=== PATIENT | female | born 1980 | race Asian ===

== ENCOUNTER 2016-12-23 11:17 | Outpatient (CLI) | payer OTHER ==
[~2016-12-23 11:17] MED LIST: AMBIEN5 MG PO; CIPRO500 MG PO; DIAZ5TAB20 PO; MACROBID100 MG PO; PERCOCET1 TA3 PO; VITAMIN C1000 MG PO; ZINC220 MG OR
== END 2016-12-23 19:04 | disposition home or self-care (01) ==
LOC: LAB 11:17
DX: R60.0 Localized edema (principal)
CPT/HCPCS: 82570; 84156

== ENCOUNTER 2017-09-05 16:24 | Outpatient (CLI) | payer OTHER | END 2017-09-05 20:09 | disposition home or self-care (01) | LOC: LAB 16:24 | DX: N39.0 Urinary tract infection, site not specified (principal) | CPT/HCPCS: 81000; 87077; 87086; 87088; 87186 ==

== ENCOUNTER 2018-04-05 17:14 | Outpatient (CLI) | payer OTHER ==
[2018-04-05] MEDS ORDERED: [UNRECOGNIZED DRUG - OTHER] PO ×2 (23:14)
[2018-04-05] MEDS ORDERED: IBUPROFEN 200200 MG PO ×2 (23:16)
[2018-04-05] MEDS ORDERED: CITALOPRAM40 MG PO ×2 (23:17)
[2018-04-05] MEDS ORDERED: PROM25TA52 PO ×2 (23:19)
[2018-04-05] MEDS ORDERED: OXYB5TAB56 PO ×2 (23:20)
[2018-04-05] MEDS ORDERED: RANI150T78 PO ×2 (23:21)
[2018-04-05] MEDS ORDERED: CETI10TA PO ×2 (23:22)
[2018-04-05] MEDS ORDERED: TEMA15CA19 PO ×2 (23:23)
[2018-04-05] MEDS ORDERED: LORATADINE10 M1 PO ×2 (23:25)
[2018-04-05] MEDS ORDERED: LORA1TAB17 PO ×2 (23:25)
[2018-04-05] MEDS ORDERED: PERCOCET1 TA3 PO ×2 (23:28)
[2018-04-05] MEDS ORDERED: ROBAXIN500 MG PO ×2 (23:29)
[2018-04-05] MEDS ORDERED: ABACAVIR SULFAT1 TAB PO ×2 (23:29)
== END 2018-04-05 17:26 | disposition short-term general hospital (02) ==
LOC: AMB 17:14
DX: M62.838 Other muscle spasm (principal); G82.50 Quadriplegia, unspecified
CPT/HCPCS: A0425; A0427

== ENCOUNTER 2018-04-05 17:29 | Inpatient (IN) | payer OTHER ==
[~2018-04-05] VITALS: Ht 170.2 cm; Wt 86.4 kg
[2018-04-05 17:35] VITALS: BP 213/131; TEMP 103.5
[2018-04-05 19:02] LABS: PLATELET COUNT 467 K/uL (152-353)
[2018-04-05 19:08] LABS: POTASSIUM 4.5 mmol/L (3.6-5.2)
[2018-04-05 20:11] VITALS: BP 182/119; TEMP 102
[2018-04-05 21:10] VITALS: BP 176/88; TEMP 101.2
[2018-04-05 22:10] VITALS: BP 180/82; TEMP 101.2
[2018-04-05] MEDS ORDERED: [UNRECOGNIZED DRUG - OTHER] PO ×2 (23:14)
[2018-04-05] MEDS ORDERED: IBUPROFEN 200200 MG PO ×2 (23:16)
[2018-04-05] MEDS ORDERED: CITALOPRAM40 MG PO ×2 (23:17)
[2018-04-05] MEDS ORDERED: PROM25TA52 PO ×2 (23:19)
[2018-04-05] MEDS ORDERED: OXYB5TAB56 PO ×2 (23:20)
[2018-04-05] MEDS ORDERED: RANI150T78 PO ×2 (23:21)
[2018-04-05] MEDS ORDERED: CETI10TA PO ×2 (23:22)
[2018-04-05] MEDS ORDERED: TEMA15CA19 PO ×2 (23:23)
[2018-04-05] MEDS ORDERED: LORATADINE10 M1 PO ×2 (23:25)
[2018-04-05] MEDS ORDERED: LORA1TAB17 PO ×2 (23:25)
[2018-04-05] MEDS ORDERED: PERCOCET1 TA3 PO ×2 (23:28)
[2018-04-05] MEDS ORDERED: ROBAXIN500 MG PO ×2 (23:29)
[2018-04-05] MEDS ORDERED: ABACAVIR SULFAT1 TAB PO ×2 (23:29)
[2018-04-05 23:40] VITALS: BP 180/105; TEMP 100.6
[2018-04-06] VITALS (8 sets, daily range): BP systolic 78–146; BP diastolic 49–95; TEMP 98.2–101.2; Ht 170.2 cm; Wt 86.4 kg
[2018-04-06 06:37] LABS: POTASSIUM 4.2 mmol/L (3.6-5.2)
[2018-04-06 07:01] LABS: PLATELET COUNT 418 K/uL (152-353)
[2018-04-07 03:56] VITALS: BP 100/62; TEMP 98.9
[2018-04-07 06:18] LABS: PLATELET COUNT 354 K/uL (152-353)
[2018-04-07 06:47] LABS: POTASSIUM 3.6 mmol/L (3.6-5.2)
[2018-04-07 08:00] VITALS: BP 173/105; TEMP 98.8
[2018-04-07 12:00] VITALS: BP 121/96; TEMP 98
[2018-04-07 16:00] VITALS: BP 160/108; TEMP 99
[2018-04-07 20:00] VITALS: BP 108/70; TEMP 98.6
[2018-04-08] VITALS (7 sets, daily range): BP systolic 92–142; BP diastolic 46–94; TEMP 97.7–98.9
[2018-04-08 06:36] LABS: PLATELET COUNT 399 K/uL (152-353)
[2018-04-08 06:56] LABS: POTASSIUM 3.9 mmol/L (3.6-5.2)
[2018-04-09] VITALS (7 sets, daily range): BP systolic 93–131; BP diastolic 52–84; TEMP 98.2–99.8
[2018-04-09 07:19] LABS: PLATELET COUNT 323 K/uL (152-353)
[2018-04-09 07:33] LABS: POTASSIUM 3.6 mmol/L (3.6-5.2)
[2018-04-10 04:00] VITALS: BP 98/60; TEMP 98.4
[2018-04-10 05:26] LABS: PLATELET COUNT 333 K/uL (152-353)
[2018-04-10 05:41] LABS: POTASSIUM 3.6 mmol/L (3.6-5.2)
[2018-04-10 08:00] VITALS: BP 100/63; TEMP 97.7
== END 2018-04-10 14:10 | disposition home or self-care (01) | DRG 871 ==
LOC: ED 17:29 → MED/SURG 22:18
PROVIDERS: Family Medicine; ADMIT Internal Medicine
DX: A41.51 Sepsis due to Escherichia coli [E. coli] (principal); L89.154 Pressure ulcer of sacral region, stage 4; G82.50 Quadriplegia, unspecified; N39.0 Urinary tract infection, site not specified; T83.511A Infection and inflammatory reaction due to indwelling urethral catheter, initial encounter; Y84.6 Urinary catheterization as the cause of abnormal reaction of the patient, or of later complication, without mention of misadventure at the time of the procedure; Y92.89 Other specified places as the place of occurrence of the external cause; F41.8 Other specified anxiety disorders
CPT/HCPCS: 80053; 80202; 81000; 83605; 85027; 87077; 87086; 87088; 87186; 96372; 99283; C1768; J0696; J1956; J2060; J2550; J3370

== ENCOUNTER 2018-05-10 14:28 | Outpatient (CLI) | payer OTHER ==
[~2018-05-10 14:28] MED LIST changes: +ABACAVIR SULFAT1 TAB PO; +CETI10TA PO; +CITALOPRAM40 MG PO; +IBUPROFEN 200200 MG PO; +LORA1TAB17 PO; +LORATADINE10 M1 PO; +OXYB5TAB56 PO; +PROM25TA52 PO; +RANI150T78 PO; +ROBAXIN500 MG PO; +TEMA15CA19 PO; +[UNRECOGNIZED DRUG - OTHER] PO
== END 2018-05-10 14:39 | disposition short-term general hospital (02) ==
LOC: AMB 14:28
DX: T83.098A Other mechanical complication of other urinary catheter, initial encounter (principal)
CPT/HCPCS: A0425; A0429

== ENCOUNTER 2018-05-10 14:40 | Emergency (ER) | payer OTHER ==
[~2018-05-10] VITALS: Ht 170.2 cm; Wt 86.2 kg
[2018-05-10 14:50] VITALS: TEMP 98.7
[2018-05-10 17:52] VITALS: BP 141/83
== END 2018-05-10 18:15 | disposition home or self-care (01) ==
LOC: ED 14:40
PROC: 0T9B70Z Drainage of Bladder with Drainage Device, Via Natural or Artificial Opening (ICD-10-PCS; principal; 2018-05-10)
DX: R33.8 Other retention of urine (principal); Y84.6 Urinary catheterization as the cause of abnormal reaction of the patient, or of later complication, without mention of misadventure at the time of the procedure
CPT/HCPCS: 51702; 96372; 99283; J1885

== ENCOUNTER 2018-06-28 10:32 | Outpatient (CLI) | payer OTHER | END 2018-06-28 10:43 | disposition short-term general hospital (02) | LOC: AMB 10:32 | DX: R10.9 Unspecified abdominal pain (principal); M54.5 Low back pain | CPT/HCPCS: A0425; A0429 ==

== ENCOUNTER 2018-06-28 10:46 | Inpatient (IN) | payer OTHER ==
[~2018-06-28] VITALS: Ht 170.2 cm; Wt 90.0 kg
[2018-06-28 10:54] VITALS: BP 185/87; TEMP 97.3
[2018-06-28 11:41] LABS: PLATELET COUNT 490 K/uL (152-353)
[2018-06-28 12:00] LABS: POTASSIUM 4.2 mmol/L (3.6-5.2)
[2018-06-28 16:51] VITALS: BP 155/100; TEMP 99.5; Ht 170.2 cm; Wt 90.0 kg
[2018-06-28 20:00] VITALS: BP 166/107; TEMP 98.3
[2018-06-29 01:54] VITALS: BP 176/111; TEMP 99.8
[2018-06-29 04:00] VITALS: BP 106/70; TEMP 97.2
[2018-06-29 13:11] LABS: PLATELET COUNT 449 K/uL (152-353)
[2018-06-29 13:14] LABS: POTASSIUM 3.5 mmol/L (3.6-5.2)
[2018-06-29 20:00] VITALS: BP 161/108; TEMP 99.1
[2018-06-30] VITALS: BP 128/86; TEMP 98.9
[2018-06-30 05:34] LABS: PLATELET COUNT 465 K/uL (152-353)
[2018-06-30 06:08] LABS: POTASSIUM 3.5 mmol/L (3.6-5.2)
[2018-06-30 08:03] VITALS: BP 125/86; TEMP 98.7
[2018-06-30 12:08] VITALS: BP 135/78; TEMP 98.7
[2018-06-30 16:00] VITALS: BP 149/98; TEMP 98.3
[2018-06-30 20:00] VITALS: BP 135/92; TEMP 99.4
[2018-07-01] VITALS: BP 111/73; TEMP 98.5
[2018-07-01 04:00] VITALS: BP 120/85; TEMP 98.2
[2018-07-01 07:55] LABS: PLATELET COUNT 348 K/uL (152-353)
[2018-07-01 08:04] VITALS: BP 105/67; TEMP 97.5
[2018-07-01 08:30] LABS: POTASSIUM 3.3 mmol/L (3.6-5.2)
[2018-07-01 12:13] VITALS: BP 123/77; TEMP 98.5
[2018-07-01 16:03] VITALS: BP 113/73; TEMP 98.7
[2018-07-01 20:00] VITALS: BP 154/87; TEMP 99.6
[2018-07-02] VITALS: BP 161/83; TEMP 98.9
[2018-07-02 04:00] VITALS: BP 148/80; TEMP 99.2
[2018-07-02 05:30] LABS: PLATELET COUNT 356 K/uL (152-353)
[2018-07-02 08:00] VITALS: BP 138/90; TEMP 98.9
[2018-07-02] MEDS ORDERED: CEFD300C2 PO (09:29)
[2018-07-02] MEDS ORDERED: BISA10SU8 RE (09:29)
[2018-07-02 12:00] VITALS: BP 132/83; TEMP 98.7
[2018-07-02 16:00] VITALS: BP 131/88; TEMP 98.3
== END 2018-07-02 19:00 | disposition home or self-care (01) | DRG 698 ==
LOC: ED 10:46 → MED/SURG 13:00
PROVIDERS: Family Medicine
DX: T83.511A Infection and inflammatory reaction due to indwelling urethral catheter, initial encounter (principal); G82.50 Quadriplegia, unspecified; N10 Acute pyelonephritis; B96.1 Klebsiella pneumoniae [K. pneumoniae] as the cause of diseases classified elsewhere; B96.5 Pseudomonas (aeruginosa) (mallei) (pseudomallei) as the cause of diseases classified elsewhere; K59.09 Other constipation; K21.9 Gastro-esophageal reflux disease without esophagitis; E87.6 Hypokalemia
CPT/HCPCS: 36415; 36558; 80053; 81000; 85027; 87077; 87086; 87088; 87186; 96365; 99284; C1768; J0744; J1650; J2060; J2175; J2405; J3411; J3490

== ENCOUNTER 2018-07-02 19:24 | Emergency (ER) | payer OTHER ==
[~2018-07-02 19:24] MED LIST changes: +BISA10SU8 RE; +CEFD300C2 PO
== END 2018-07-02 20:48 | disposition home or self-care (01) ==
LOC: ED 19:24
DX: R03.1 Nonspecific low blood-pressure reading (principal)
CPT/HCPCS: 99281

== ENCOUNTER 2018-08-13 12:48 | Outpatient (CLI) | payer OTHER | END 2018-08-13 22:20 | disposition home or self-care (01) | LOC: LAB 12:48 | DX: N39.0 Urinary tract infection, site not specified (principal) | CPT/HCPCS: 81000; 87077; 87086; 87088; 87186 ==

== ENCOUNTER 2018-08-21 10:25 | Outpatient (CLI) | payer OTHER | END 2018-08-21 21:06 | disposition home or self-care (01) | LOC: LAB 10:25 | DX: L89.304 Pressure ulcer of unspecified buttock, stage 4 (principal) | CPT/HCPCS: 87070; 87077; 87185; 87186; 87205 ==

== ENCOUNTER 2018-08-29 11:36 | Outpatient (CLI) | payer OTHER ==
[2018-08-29] MEDS ORDERED: FENTANYL37.5 MCG/H TD (14:39)
[2018-08-29] MEDS ORDERED: OXYC10TA3 PO (14:40)
[2018-08-29] MEDS ORDERED: PROMETHAZINE25 M1 RE (14:43)
[2018-08-29] MEDS ORDERED: RIZATRIPTAN BENZ5 M1 PO (14:43)
[2018-08-29] MEDS ORDERED: NITR100C PO (14:44)
[2018-08-29] MEDS ORDERED: GENTAK0.3 % PO (14:45)
[2018-08-29] MEDS ORDERED: LEVOFLOXACIN500 MG PO (14:49)
[2018-08-29] MEDS ORDERED: LORA1TAB17 PO (14:50)
[2018-08-29] MEDS ORDERED: TEMA15CA19 PO (14:52)
[2018-08-29] MEDS ORDERED: NEURONTIN 100M100 MG PO (14:53)
[2018-08-29] MEDS ORDERED: OXYB5TAB64 PO (14:53)
[2018-08-29] MEDS ORDERED: TIZANIDINE HYDRO4 MG PO (14:54)
[2018-08-30] MEDS ORDERED: 904272561 PO (03:03)
[2018-08-30] MEDS ORDERED: CLARITIN10 MG PO (03:06)
[2018-08-30] MEDS ORDERED: TIZA4TAB5 PO (03:07)
== END 2018-08-29 11:47 | disposition short-term general hospital (02) ==
LOC: AMB 11:36
DX: R10.9 Unspecified abdominal pain (principal); R07.89 Other chest pain
CPT/HCPCS: A0425; A0427

== ENCOUNTER 2018-08-29 11:56 | Inpatient (IN) | payer OTHER ==
[~2018-08-29] VITALS: Ht 170.2 cm; Wt 81.4 kg
[2018-08-29 11:56] VITALS: BP 143/108; TEMP 97.7
[2018-08-29 12:56] VITALS: BP 85/50
[2018-08-29 13:30] LABS: PLATELET COUNT 458 K/uL (152-353)
[2018-08-29 13:37] LABS: POTASSIUM 3.5 mmol/L (3.6-5.2); SODIUM 141 mmol/L (136-145)
[2018-08-29 13:56] VITALS: BP 177/102
[2018-08-29 13:56] LABS: PARTIAL THROMBOPLASTIN TIME 26.8 SECONDS (24.5-33.6)
[2018-08-29] MEDS ORDERED: FENTANYL37.5 MCG/H TD (14:39)
[2018-08-29] MEDS ORDERED: OXYC10TA3 PO (14:40)
[2018-08-29] MEDS ORDERED: RIZATRIPTAN BENZ5 M1 PO (14:43)
[2018-08-29] MEDS ORDERED: PROMETHAZINE25 M1 RE (14:43)
[2018-08-29] MEDS ORDERED: NITR100C PO (14:44)
[2018-08-29] MEDS ORDERED: GENTAK0.3 % PO (14:45)
[2018-08-29] MEDS ORDERED: LEVOFLOXACIN500 MG PO (14:49)
[2018-08-29] MEDS ORDERED: LORA1TAB17 PO (14:50)
[2018-08-29] MEDS ORDERED: TEMA15CA19 PO (14:52)
[2018-08-29] MEDS ORDERED: NEURONTIN 100M100 MG PO (14:53)
[2018-08-29] MEDS ORDERED: OXYB5TAB64 PO (14:53)
[2018-08-29] MEDS ORDERED: TIZANIDINE HYDRO4 MG PO (14:54)
[2018-08-29 14:56] VITALS: BP 163/110
[2018-08-29 18:56] VITALS: BP 97/61; TEMP 98.1; Ht 170.2 cm; Wt 81.4 kg
[2018-08-29 20:00] VITALS: BP 127/73; TEMP 97.8
[2018-08-30] VITALS: BP 141/98; TEMP 98.3
[2018-08-30] MEDS ORDERED: 904272561 PO (03:03)
[2018-08-30] MEDS ORDERED: CLARITIN10 MG PO (03:06)
[2018-08-30] MEDS ORDERED: TIZA4TAB5 PO (03:07)
[2018-08-30 04:00] VITALS: BP 158/108; TEMP 98.2
[2018-08-30 08:10] LABS: PLATELET COUNT 447 K/uL (152-353)
[2018-08-30 08:20] LABS: POTASSIUM 3.4 mmol/L (3.6-5.2)
[2018-08-30 08:33] VITALS: BP 151/101; TEMP 98.1
[2018-08-30 12:09] VITALS: BP 172/113; TEMP 97.6
[2018-08-30 16:18] VITALS: BP 143/107; TEMP 98.6
[2018-08-30 20:00] VITALS: BP 147/96; TEMP 99.1
[2018-08-31] VITALS: BP 158/89; TEMP 99.4
[2018-08-31 04:00] VITALS: BP 149/92; TEMP 98.9
[2018-08-31 05:43] LABS: PLATELET COUNT 378 K/uL (152-353)
[2018-08-31 06:14] LABS: POTASSIUM 4.1 mmol/L (3.6-5.2)
[2018-08-31 08:14] VITALS: BP 168/109; TEMP 99
[2018-08-31 12:05] VITALS: BP 182/116; TEMP 98.3
[2018-08-31 16:00] VITALS: BP 127/87; TEMP 99.9
[2018-08-31 20:25] VITALS: BP 105/75; TEMP 99.7
[2018-09-01] VITALS: BP 152/95; TEMP 98
[2018-09-01 04:00] VITALS: BP 96/60; TEMP 98.3
[2018-09-01 05:39] LABS: PLATELET COUNT 397 K/uL (152-353)
[2018-09-01 05:54] LABS: POTASSIUM 3.5 mmol/L (3.6-5.2)
[2018-09-01 08:00] VITALS: BP 82/45; TEMP 98.9
[2018-09-01 12:00] VITALS: BP 86/48; TEMP 98.9
[2018-09-01 16:00] VITALS: BP 126/63; TEMP 99
[2018-09-01 20:00] VITALS: BP 103/79; TEMP 97.4
[2018-09-02] VITALS: BP 97/59; TEMP 98.7
[2018-09-02 04:26] VITALS: BP 109/77; TEMP 98.8
[2018-09-02 08:00] VITALS: BP 102/61; TEMP 98.7
[2018-09-02 11:40] LABS: PLATELET COUNT 384 K/uL (152-353)
[2018-09-02 12:00] VITALS: BP 138/85; TEMP 98.5
[2018-09-02 16:09] VITALS: BP 129/84; TEMP 98.4
[2018-09-02 20:00] VITALS: BP 99/66; TEMP 97.6
[2018-09-03] VITALS: BP 112/67; TEMP 97.7
[2018-09-03 04:00] VITALS: BP 146/68; TEMP 98.1
[2018-09-03 05:58] LABS: PLATELET COUNT 426 K/uL (152-353)
[2018-09-03 06:37] LABS: POTASSIUM 4.2 mmol/L (3.6-5.2)
[2018-09-03 08:00] VITALS: BP 128/71; TEMP 98
[2018-09-03 12:00] VITALS: BP 90/58; TEMP 97.6
[2018-09-03 16:00] VITALS: BP 127/70; TEMP 97.5
[2018-09-03 20:00] VITALS: BP 126/69; TEMP 97.5
[2018-09-04] VITALS: BP 94/43; TEMP 97.9
[2018-09-04 04:00] VITALS: BP 106/67; TEMP 97.8
[2018-09-04 05:54] LABS: PLATELET COUNT 362 K/uL (152-353)
[2018-09-04 06:16] LABS: POTASSIUM 4.3 mmol/L (3.6-5.2)
[2018-09-04 07:30] VITALS: BP 110/73; TEMP 98.1
[2018-09-04 11:30] VITALS: BP 98/50; TEMP 98.4
[2018-09-04 16:00] VITALS: BP 131/89; TEMP 97.8
[2018-09-04 20:00] VITALS: BP 119/77; TEMP 97.3
[2018-09-05] VITALS: BP 86/49; TEMP 97.3
[2018-09-05 04:00] VITALS: BP 89/42; TEMP 97.7
[2018-09-05 04:49] LABS: PLATELET COUNT 436 K/uL (152-353)
[2018-09-05 05:18] LABS: POTASSIUM 4.6 mmol/L (3.6-5.2)
[2018-09-05 08:00] VITALS: BP 69/35; TEMP 97.9
[2018-09-05] MEDS ORDERED: ASCO500T18 PO (11:30)
[2018-09-05] MEDS ORDERED: METO50TA63 PO (11:32)
[2018-09-05] MEDS ORDERED: LISI10TA11 PO (11:32)
[2018-09-05] MEDS ORDERED: MULTTAB52 PO (11:33)
[2018-09-05] MEDS ORDERED: ZINC220C4 PO (11:33)
[2018-09-05] MEDS ORDERED: INVANZ1 GM IVPB (11:40)
[2018-09-05 12:00] VITALS: BP 89/46; TEMP 98.5
== END 2018-09-05 16:15 | DRG 699 ==
LOC: ED 11:56 → MED/SURG 14:30
PROVIDERS: ADMIT Emergency Medicine
DX: T83.518A Infection and inflammatory reaction due to other urinary catheter, initial encounter (principal); N39.0 Urinary tract infection, site not specified; G82.20 Paraplegia, unspecified; R07.89 Other chest pain; L89.152 Pressure ulcer of sacral region, stage 2; E87.6 Hypokalemia; R53.81 Other malaise; F32.9 Major depressive disorder, single episode, unspecified; B96.89 Other specified bacterial agents as the cause of diseases classified elsewhere; Z93.3 Colostomy status; R56.9 Unspecified convulsions
CPT/HCPCS: 36415; 80053; 81000; 82550; 83735; 83880; 84443; 84484; 85027; 85379; 85610; 85730; 87070; 87077; 87086; 87088; 87185; 87186; 87205; 93005; 94760; 99283; J0696; J1335; J1650; J2060

== ENCOUNTER 2019-02-05 14:30 | Emergency (ER) | payer OTHER ==
[~2019-02-05] VITALS: Ht 170.2 cm; Wt 81.2 kg
[~2019-02-05 14:30] MED LIST changes: +904272561 PO; +ASCO500T18 PO; +CLARITIN10 MG PO; +FENTANYL37.5 MCG/H TD; +GENTAK0.3 % PO; +INVANZ1 GM IVPB; +LEVOFLOXACIN500 MG PO; +LISI10TA11 PO; +METO50TA63 PO; +MULTTAB52 PO; +NEURONTIN 100M100 MG PO; +NITR100C PO; +OXYB5TAB64 PO; +OXYC10TA3 PO; +PROMETHAZINE25 M1 RE; +RIZATRIPTAN BENZ5 M1 PO; +TIZA4TAB5 PO; +TIZANIDINE HYDRO4 MG PO; +ZINC220C4 PO
[2019-02-05 16:25] LABS: PLATELET COUNT 427 K/uL (152-353)
[2019-02-05 16:29] LABS: POTASSIUM 3.5 mmol/L (3.6-5.2)
[2019-02-05 20:42] VITALS: BP 98/57; TEMP 96.9
== END 2019-02-05 20:42 | disposition home or self-care (01) ==
LOC: ED 14:30
PROVIDERS: Family Medicine
DX: N39.0 Urinary tract infection, site not specified (principal); E87.6 Hypokalemia
CPT/HCPCS: 80053; 81000; 85027; 87077; 87086; 87088; 87186; 96372; 99283; J0696; J2175; J2550

== ENCOUNTER 2019-02-06 21:05 | Emergency (ER) | payer OTHER ==
[~2019-02-06] VITALS: Ht 170.2 cm; Wt 81.2 kg
[2019-02-06 21:37] LABS: PLATELET COUNT 456 K/uL (152-353)
[2019-02-06 21:47] LABS: POTASSIUM 3.6 mmol/L (3.6-5.2); SODIUM 138 mmol/L (136-145)
[2019-02-07 03:04] VITALS: BP 126/89; TEMP 98.9
== END 2019-02-07 03:04 | disposition home or self-care (01) ==
LOC: ED 21:05
PROVIDERS: Emergency Medicine
DX: R07.89 Other chest pain (principal); I45.81 Long QT syndrome
CPT/HCPCS: 36415; 80053; 82550; 82553; 84484; 85027; 93005; 96372; 99284; J2270